=== PATIENT | male | born 1975 | race Caucasian/White ===

== ENCOUNTER 2016-10-03 13:09 | Emergency (ER) | payer SELFPAY ==
[2016-10-03 13:17] VITALS: BMI 27.3
[2016-10-03] MEDS ORDERED: FAMOTIDINE 20 MG/50 ML IVPB 50 ML IVPB ONE ×2 (14:22→14:26)
[2016-10-03 14:29] LABS: BASOPHIL 0.6 % (0-2.0); MCH 29.9 pg (25.7-33.7); MEAN CELL VOLUME 90.6 fl (80-96); MEAN PLT VOLUME 9.8 fl (7.5-11.1); NEUTROPHILS 62.5 % (42.8-82.8); PLATELET COUNT 169 K/MM3 (134-434); RDW 13.7 % (11.9-15.9); WHITE BLOOD COUNT 8.1 K/mm3 (4.0-10.0)
--- NOTE | 2016-10-03 14:29 | PDOC ---
Attending Attestation - Resident Resident Name: Juana Castellano - ED Attending Attestation I have performed the following: I have examined & evaluated the patient, The case was reviewed & discussed with the resident, I agree w/resident's findings & plan, Exceptions are as noted - HPI HPI: 41 yo M presents with upper abdominal pain. Pain is intermittent, upper abdominal, nonradiating. It does not appear to be related to eating fatty foods. No history of ulcers in the past. He does have a history of L inguinal hernia repair in the past. No N/V/D. - Physicial Exam PE: GENERAL: Awake, alert, and fully oriented, in no acute distress HEAD: No signs of trauma EYES: PERRLA, EOMI, sclera anicteric, conjunctiva clear ENT: Auricles normal inspection, hearing grossly normal, nares patent, oropharynx clear without exudates. Moist mucosa NECK: Normal ROM, supple, no lymphadenopathy, JVD, or masses LUNGS: Breath sounds equal, clear to auscultation bilaterally. No wheezes, and no crackles HEART: Regular rate and rhythm, normal S1 and S2, no murmurs, rubs or gallops ABDOMEN: Soft, nontender, normoactive bowel sounds. No guarding, no rebound. No masses EXTREMITIES: Normal range of motion, no edema. No clubbing or cyanosis. No cords, erythema, or tenderness NEUROLOGICAL: Cranial nerves II through XII grossly intact. Normal speech, normal gait SKIN: Warm, Dry, normal turgor, no rashes or lesions noted. - Medical Decision Making Patient with upper abdominal pain, DDx includes PUD, pancreatitis (he has history of EtOH use), gallstones. Will obtain labs. If lipase or LFTs are elevated, will pursue further workup. Otherwise will give GI cocktail and f/u with GI outpatient.
--- NOTE | 2016-10-03 14:33 | PDOC ---
History of Present Illness <Juana Lynneth - Last Filed: 10/03/16 15:56> - General History Source: Patient Exam Limitations: No Limitations - History of Present Illness Initial Comments: This is a 41 yo male with h/o inguinal hernia repair who p/w upper abdominal discomfort for the past 2-3 days. The discomfort fluctuates and often disappears completely, coming episodes lasting minutes at a time, and disappearing for hours at a time in between. 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 He has taken only Advil for this pain, with the last dose two days ago. He notes nausea , recent thin stool, and generalized weakness. He also notes recent increase in anxiety and 10 lb weight loss in the past few months, but attributes both of these symptoms to his new job which he started two months ago. He denies any vomiting, diarrhea, constipation, fever, chills, chest pain, shortness of breath , palpitations, change in appetite, night sweats. He has had no recent sick contacts or strange/questionable food intake. He notes consuming about 20 alcoholic drinks/week. He has struggled with GERD in the past, but states that this feels nothing like it. <Castellano,Juana - Last Filed: 10/06/16 21:36> - General Chief Complaint: Pain Stated Complaint: ABD PAIN Time Seen by Provider: 10/03/16 13:22 Past History <Jasmin Lynne - Last Filed: 10/03/16 15:56> - Psycho/Social/Smoking Cessation Hx Suicidal Ideation: No Smoking History: Never smoked Information on smoking cessation initiated: No <Castellano,Juana - Last Filed: 10/06/16 21:36> - Past Medical History Allergies/Adverse Reactions: Allergies Allergy/AdvReac Type Severity Reaction Status Date / Time No Known Allergies Allergy Verified 10/03/16 13:17 Home Medications: Ambulatory Orders NK [No Known Home Medication] 10/03/16 Review of Systems - Review of Systems Constitutional: Yes: Weakness. No: Chills, Fever, Loss of Appetite, Unexplained wgt Loss HEENTM: No: Nose Congestion, Throat Pain Respiratory: No: Cough, Shortness of Breath Cardiac (ROS): No: Chest Pain, Palpitations ABD/GI: Yes: Nausea, Other (abdominal discomfort, thin stool). No: Constipated , Diarrhea, Vomiting : No: Burning, Dysuria Musculoskeletal: Yes: Back Pain (right lower back pain). No: Neck Pain Integumentary: No: Bruising, Rash Neurological: No: Headache, Numbness, Tingling, Weakness, Dizziness Psychiatric: Yes: Anxiety Endocrine: No: Unexplained Weight Gain, Unexplained Weight Loss <Juana Castellano - Last Filed: 10/06/16 21:36> *Physical Exam - Vital Signs Last Vital Signs Temp Pulse Resp BP Pulse Ox 98 F 67 18 143/69 100 10/03/16 13:14 10/03/16 13:14 10/03/16 13:14 10/03/16 13:14 10/03/16 13:14 <MagedNeldaJasmin - Last Filed: 10/03/16 15:56> - Vital Signs Last Vital Signs Temp Pulse Resp BP Pulse Ox 98 F 67 18 143/69 100 10/03/16 13:14 10/03/16 13:14 10/03/16 13:14 10/03/16 13:14 10/03/16 13:14 - Physical Exam General Appearance: Yes: Nourished, Appropriately Dressed, Other (nontoxic and well-appearing male who is conversive and pleasant). No: Apparent Distress HEENT: positive: EOMI, Normal Voice, Hearing Grossly Normal. negative: Scleral Icterus (R), Scleral Icterus (L), Nasal Congestion Neck: positive: Trachea midline, Supple. negative: Tender, Rigid Respiratory/Chest: positive: Lungs Clear, Normal Breath Sounds. negative: Respiratory Distress, Crackles, Rhonchi, Stridor, Wheezing Cardiovascular: positive: Regular Rhythm, Regular Rate. negative: Murmur Gastrointestinal/Abdominal: positive: Normal Bowel Sounds, Flat, Soft. negative : Tender, Organomegaly, Pulsatile Mass, Protuberent, Distended, Guarding, Rebound, Hepatomegaly, Spleenomegaly Musculoskeletal: positive: Normal Inspection. negative: Decreased Range of Motion, Vertebral Tenderness Extremity: positive: Normal Capillary Refill, Normal Inspection, Normal Range of Motion. negative: Tender, Cyanosis Integumentary: positive: Normal Color, Dry, Warm. negative: Erythema, Rash, Bruising Neurologic: positive: patient care associate II-XII NML intact, Fully Oriented, Alert, Normal Mood/ Affect, Normal Response, Motor Strength 5/5 <Juana Castellano - Last Filed: 10/06/16 21:36> ED Treatment Course - LABORATORY CBC & Chemistry Diagram: 10/03/16 13:43 10/03/16 13:43 - ADDITIONAL ORDERS Additional order review: Laboratory Results 10/03/16 13:43 Sodium 139 Potassium 4.1 Chloride 101 Carbon Dioxide 30 Anion Gap 8 BUN 12 Creatinine 0.8 Creat Clearance w eGFR > 60 Random Glucose 96 Calcium 9.1 Total Bilirubin 0.3 AST 14 L ALT 27 Alkaline Phosphatase 60 Total Protein 7.0 Albumin 3.8 Lipase 119 10/03/16 13:43 RBC 4.89 MCV 90.6 MCHC 33.0 RDW 13.7 MPV 9.8 Neutrophils % 62.5 Lymphocytes % 23.0 Monocytes % 9.9 Eosinophils % 4.0 Basophils % 0.6 - Medications Given in the ED: ED Medications Discontinued Medications Generic Name Dose Route Start Last Admin Trade Name Marco Aq PRN Reason Stop Dose Admin Famotidine/Sodium Chloride 50 mls @ 100 mls/hr 10/03/16 14:22 10/03/16 14:27 Pepcid 20 Mg Premixed Ivpb - IVPB 10/03/16 14:51 100 mls/hr ONCE ONE Administration <Jasmin Lynne - Last Filed: 10/03/16 15:56> - LABORATORY CBC & Chemistry Diagram: 10/03/16 13:43 10/03/16 13:43 <Juana Castellano - Last Filed: 10/06/16 21:36> Medical Decision Making - Medical Decision Making 41 yo male p/w upper abdominal discomfort and mild nausea. Some h/o excessive alcohol consumption but exam is unremarkable. No ttp, normoactive bowel sounds, otherwise normal exam. DDX includes PUD, GERD, viral gastritis, pancreatitis, cholecystitis, gas pains. Ordered are CBC, CMP, lipase, IV Pepcid. Laboratories result as unremarkable. The patient notes significant improvement after Pepcid administration. He wishes to go home, VS wnl, he is appropriate for outpatient management. Return precautions are discussed and he will follow up with PCP or return to ED if needed. <Juana Castellano - Last Filed: 10/06/16 21:36> *DC/Admit/Observation/Transfer - Discharge Dispostion Admit: No <LynneJasmin - Last Filed: 10/03/16 15:56> - Discharge Dispostion Admit: Yes - Attestations Physician Attestion: I, Dr. Juana Castellano, attest that this document has been prepared under my direction and personally reviewed by me in its entirety. I further attest, that it accurately reflects all work, treatment, procedures and medical decision -making performed by me. <Juana Castellano - Last Filed: 10/06/16 21:36> Diagnosis at time of Disposition: Abdominal pain Qualifiers: Abdominal location: epigastric Qualified Code(s): R10.13 - Epigastric pain - Discharge Dispostion Disposition: HOME Condition at time of disposition: Stable - Referrals Referrals: Juan Mendoza MD [Staff Physician] - - Patient Instructions Printed Discharge Instructions: DI for Epigastric Pain Additional Instructions: PEPCID FOR STOMACH PAIN. FOLLOW UP WITH [facility] TO HAVE ADDITIONAL WORKUP.
[2016-10-03 14:59] LABS: ALBUMIN 3.8 g/dl (3.4-5.0); ANION GAP 8 (8-16); BILIRUBIN,TOTAL 0.3 mg/dL (0.2-1.0); CALCIUM 9.1 mg/dL (8.5-10.1); CO2 30 mmol/L (21-32); CREATININE 0.8 mg/dL (0.7-1.3); GLUCOSE,RANDOM 96 mg/dL (74-106); SGOT/AST 14 U/L (15-37); SGPT/ALT 27 U/L (12-78)
[2016-10-03 15:00] LABS: ALK PHOS 60 U/L (45-117)
[2016-10-03 16:11] VITALS: BP 132/77; PULSE 72; TEMP 98.3
== END 2016-10-03 16:11 | disposition home or self-care (01) ==
LOC: JER 13:09
PROC: 3E033GC Introduction of Other Therapeutic Substance into Peripheral Vein, Percutaneous Approach (ICD-10-PCS; principal; 2016-10-03)
DX: R10.13 Epigastric pain (principal)
CPT/HCPCS: 36415; 80053; 83690; 85025; 99282-25

== ENCOUNTER 2017-12-06 10:44 | Emergency (ER) | payer BC ==
[2017-12-06 10:58] VITALS: BP 144/92; PULSE 75; TEMP 98.7; BMI 28.1
[2017-12-06] MEDS ORDERED: AZITHROMYCIN 250 MG TABLET PO ONE (12:58)
[2017-12-06] MEDS ORDERED: AZITHROMYCIN 250 MG TABLET ONE (13:02)
--- NOTE | 2017-12-06 13:02 | PDOC ---
History of Present Illness - General Chief Complaint: HIV Testing Stated Complaint: EVALUATION Time Seen by Provider: 12/06/17 12:47 - History of Present Illness Initial Comments: 12/06/17 12:59 42-year-old male without comorbidities presents requesting gonorrhea chlamydia testing. He is declining HIV testing as he does not want to wait. Past History - Past Medical History Allergies/Adverse Reactions: Allergies Allergy/AdvReac Type Severity Reaction Status Date / Time No Known Allergies Allergy Verified 12/06/17 10:57 Home Medications: Ambulatory Orders NK [No Known Home Medication] 10/03/16 - Suicide/Smoking/Psychosocial Hx Smoking History: Never smoked Have you smoked in the past 12 months: No Information on smoking cessation initiated: No Hx Alcohol Use: No Drug/Substance Use Hx: No Review of Systems - Review of Systems All Other Systems: Reviewed and Negative *Physical Exam - Vital Signs Last Vital Signs Temp Pulse Resp BP Pulse Ox 98.7 F 75 16 144/92 100 12/06/17 10:55 12/06/17 10:55 12/06/17 10:55 12/06/17 10:55 12/06/17 10:55 - Physical Exam Comments: 12/06/17 13:00 HEAD: NC/AT EYES: Conjuntiva clear MS: Full ROM in all joints without edema NEUROLOGIC: No gross sensory or motor deficits, NVID SKIN: Normal color and temperature no lesions or rashes Medical Decision Making - Medical Decision Making 12/06/17 13:00 42-year-old male requesting gonorrhea chlamydia testing he has no symptoms only concerns.he still would like to be treated *DC/Admit/Observation/Transfer Diagnosis at time of Disposition: STD (male) - Discharge Dispostion Disposition: HOME Condition at time of disposition: Stable Decision to Admit order: No - Referrals Referrals: Carter Howard [Non Staff, Medical] - - Patient Instructions Printed Discharge Instructions: Facts About Sexually Transmitted Infections Additional Instructions: Please follow up with the primary care physician I recommended for you. You were treated for gonorrhea and chlamydia today. Return to the emergency room should you develop any symptoms. Should her lab results be positive we will light now. - Post Discharge Activity
== END 2017-12-06 13:12 | disposition home or self-care (01) ==
LOC: JERFT 10:44
DX: Z11.3 Encounter for screening for infections with a predominantly sexual mode of transmission (principal)
CPT/HCPCS: 36415; 87491; 87591; 99281-25